=== PATIENT | male | born 1980 | race African-American/Black ===

== ENCOUNTER → 2019-02-09 | Outpatient (CLI) | payer OTHER ==
--- NOTE | 2019-02-09 10:33 | REP ---
RIGHT FIFTH DIGIT: Four views of the right fifth digit are performed. There is a nondisplaced fracture at the tip of the distal phalanx. No other acute fracture, dislocation or intrinsic bone disease is visualized. Electronically Signed by Quan Hernandez MD 02/09/2019 04:51 P
== END ==
LOC: M WUC 09:49
PROVIDERS: ATTEND Physician Assistant
DX: S62.666A Nondisplaced fracture of distal phalanx of right little finger, initial encounter for closed fracture (principal); X58.XXXA Exposure to other specified factors, initial encounter; Y92.89 Other specified places as the place of occurrence of the external cause